=== PATIENT | male | born 1990 | race Caucasian/White ===

== ENCOUNTER 2022-03-03 22:37 | Emergency (ER) | payer OTHER, SELFPAY ==
[2022-03-03 22:50] VITALS: BP 155/56; PULSE 116; RESP 20; TEMP 37.1; O2SAT 99
--- NOTE | 2022-03-03 23:00 | ED.SKABFB ---
HPI - Skin/Abscess/Foreign Bdy General Chief complaint: Skin/Abscess/Foreign Body Stated complaint: abcess to inner thigh Time Seen by Provider: 03/03/22 22:56 History of Present Illness HPI narrative: 42-year male presents emergency room secondary to a tender swollen area to the left inguinal region. He states he has been there for a day or so. He states he try to get some drainage out of it at home but could not. Is gotten more more tender, red, and swollen. Not anything like this before. His last tetanus shot was a year and a half ago. Related Data Allergies Allergy/AdvReac Type Severity Reaction Status Date / Time No Known Allergies Allergy Verified 03/03/22 22:53 Review of Systems Review of Systems: CONSTITUTIONAL: Denies fever, chills, or sweats. EYES: Denies visual changes, redness, or discharge. ENT: Denies rhinorrhea, congestion, sore throat, or otalgia. CARDIOVASCULAR: Denies chest pain, palpitations, or edema. RESPIRATORY: Denies cough or dyspnea. GASTROINTESTINAL: Denies abdominal pain, nausea, vomiting, or diarrhea. GENITOURINARY: Denies dysuria or hematuria. SKIN: Not have a tender swollen area in the left inguinal region MUSCULOSKELETAL: Denies back pain, joint pain, or myalgia. NEUROLOGIC: Denies headache, numbness, or weakness. PSYCHIATRIC: Denies anxiety or depression. [facility] Past Medical History Medical History (Updated 03/03/22 @ 23:32 by Eric Suazo DO) Heart murmur Social History Social History (Updated 03/03/22 @ 23:01 by Eric Suazo DO) Living arrangements: with family Exam Narrative: APPEARANCE: Well appearing, no pain or distress, well-nourished. Head Normocephalic and atraumatic. EYES: PERRLA/EOMI, conjunctivae clear. NOSE: Normal with no drainage EARS:TMS clear with Savage, with good light reflex. THROAT: Pharynx clear, no exudate. NECK: Supple. No adenopathy, no masses. RESPIRATORY: Airway patent, respirations nonlabored. Clear to auscultation bilaterally, no rales, rhonchi, wheezing. CARDIOVASCULAR: Regular rate and rhythm without murmurs, rubs, or gallops. ABDOMINAL: Soft, nontender, nondistended, no hepatosplenomegaly Musculoskeletal: Moves all extremities. Strength/ROM intact, No edema, No calf tenderness. Noted to have approximately 2 to 3 cm in diameter fluctuant tender swollen area to the left inguinal region. NEURO: Alert. Cranial nerves II through XII intact. Normal gait. Good coordination. Nonfocal examination. SKIN:: Warm, dry. Normal Color PSYCHIATRIC: Normal affect/mood, normal interaction Course Vital Signs Vital signs: Vital Signs Temperature 98.7 F 03/03/22 22:50 Pulse Rate 116 H 03/03/22 22:50 Respiratory Rate 20 03/03/22 22:50 Blood Pressure 155/56 H 03/03/22 22:50 Pulse Oximetry 99 03/03/22 22:50 Oxygen Delivery Room Air 03/03/22 22:50 Temperature 98.7 F 03/03/22 22:50 Pulse Rate 116 H 03/03/22 22:50 Respiratory Rate 20 03/03/22 22:50 Blood Pressure 155/56 H 03/03/22 22:50 Pulse Oximetry 99 03/03/22 22:50 Oxygen Delivery Room Air 03/03/22 22:50 Procedures Abscess I/D lower extremity: Abcess I&D Additional Comments: Patient noted to have a abscess in the left inguinal area. The area was infiltrated with a total 10 cc of 1% lidocaine without epinephrine. Stab incision was made and able to obtain approximately 10 to 15 cc of purulent drainage. Using hemostats break up any loculations were noted to be present. Then was packed with quarter inch iodoform gauze. Patient tolerated procedure well. Discharge Plan Discharge Clinical Impression: Abscess of skin or subcutaneous tissue Patient Disposition: Home, Self-Care Condition: Improved Instructions: Antibiotic Form, Abscess (ED) Additional Instructions: Warm compresses to the area. If the packing is still in place in 2 days then you can remove it. Return if worse. Take medication as prescribed. Prescriptions: New cephalexi
[2022-03-03 23:55] VITALS: BP 121/72; PULSE 108; RESP 20; O2SAT 97
== END 2022-03-03 23:56 | disposition home or self-care (01) ==
PROVIDERS: Emergency Provider Emergency Medicine; PCP Family Medicine
DX: L02.214 Cutaneous abscess of groin (principal)
CPT/HCPCS: 10061; 99283

== ENCOUNTER 2022-11-26 21:52 | Emergency (ER) | payer OTHER, SELFPAY ==
--- NOTE | ~2022-11-26 | XR_ITS ---
EXAMINATION: XR G tube evaluation w imaging DATE: 11/26/2022 22:39 INDICATION: Gastrostomy tube placement. TECHNIQUE: A supine view of the abdomen was obtained. COMPARISON: None. FINDINGS: The lower abdomen is excluded. There are no dilated loops of bowel. The gastrostomy tube is in the stomach. There is contrast in the tube and in the stomach. IMPRESSION: 1. Gastrostomy tube in the stomach. Reviewed, dictated and finalized at location A.
[2022-11-26 21:52] VITALS: BP 121/73; PULSE 79; RESP 20; TEMP 36.5; O2SAT 100
[2022-11-26 22:00] VITALS: BP 121/73; O2SAT 100
[2022-11-26 22:16] VITALS: BP 119/71; PULSE 73; O2SAT 100
--- NOTE | 2022-11-26 22:47 | ED.GENADULT ---
HPI - General Adult General Chief complaint: Unspecified Stated complaint: BLEEDING AND DISCHARGE FROM G-TUBE Time Seen by Provider: 11/26/22 22:48 History of Present Illness HPI narrative: Patient 32-year-old gentleman who presents the emergency department with chief complaint of possible G-tube complication. The patient has history of a traumatic brain injury and is currently receiving G-tube feeds. The family noticed that when they were cleaning him today there was a little bit of blood around the site of the G-tube and noticed a little bit of leaking around the G-tube site. Upon arrival to the emergency department the patient has no complaints with it and there is currently no active bleeding the family was concerned as they wanted to make sure it was placed correctly. Related Data Allergies Allergy/AdvReac Type Severity Reaction Status Date / Time No Known Allergies Allergy Verified 11/26/22 22:05 Review of Systems Review of Systems: A 10 system review of systems was completed on the patient and is negative except for what is stated in the HPI. Nursing and ancillary documentation was reviewed. [facility] Past Medical History Medical History Atrial septal defect Heart murmur Surgical History Surgical History H/O wrist surgery History of appendectomy Family History Family History Father Sleep apnea Social History Social History Smoking status: Never smoker Tobacco type: cigarettes Second hand tobacco smoke exposure: No Alcohol intake: never Substance use: never Substance use type: does not use Living arrangements: with family Exam Narrative: GENERAL: Well-appearing, well-nourished, and in no acute distress. HEAD: Normocephalic, atraumatic. EYES: PERRLA and EOMI. ENT: Nares clear, no rhinorrhea or epistaxis. Mucous membranes moist. NECK: Supple. CHEST: Clear to auscultation. No respiratory distress. HEART: Regular rate and rhythm. No murmur heard. Normal peripheral pulses. ABDOMEN: Soft, nontender, nondistended, normal active bowel sounds. G-tube in place no erythema around the site no bleeding EXTREMITIES: Patient at baseline level of motion extremities held in a contracted position. No edema. SKIN: Warm, dry, no rash. NEURO: No focal deficits. Alert to baseline, PSYCH: Normal mood and affect. Course Vital Signs Vital signs: Vital Signs Temperature 97.7 F 11/26/22 21:52 Pulse Rate 79 11/26/22 21:52 Respiratory Rate 20 11/26/22 21:52 Blood Pressure 121/73 11/26/22 21:52 Pulse Oximetry 100 11/26/22 21:52 Oxygen Delivery Room Air 11/26/22 21:52 Temperature 97.7 F 11/26/22 21:52 Pulse Rate 73 11/26/22 22:16 Respiratory Rate 20 11/26/22 21:52 Blood Pressure 119/71 11/26/22 22:16 Pulse Oximetry 100 11/26/22 22:16 Oxygen Delivery Room Air 11/26/22 21:52 Medical Decision Making MDM Narrative Medical decision making narrative: Differential diagnosis includes malfunction of G-tube displacement of G-tube. G-tube contrast study was obtained which showed the tube is in place in the stomach. Vital Signs Vital Signs: Vital Signs Temperature 97.7 F 11/26/22 21:52 Pulse Rate 79 11/26/22 21:52 Respiratory Rate 20 11/26/22 21:52 Blood Pressure 121/73 11/26/22 21:52 Pulse Oximetry 100 11/26/22 21:52 Oxygen Delivery Room Air 11/26/22 21:52 Temperature 97.7 F 11/26/22 21:52 Pulse Rate 73 11/26/22 22:16 Respiratory Rate 20 11/26/22 21:52 Blood Pressure 119/71 11/26/22 22:16 Pulse Oximetry 100 11/26/22 22:16 Oxygen Delivery Room Air 11/26/22 21:52 Discharge Plan Discharge Clinical Impression: Encounter for medical screening examinatio
== END 2022-11-27 00:17 | disposition home or self-care (01) ==
PROVIDERS: Emergency Provider Emergency Medicine; PCP Family Medicine
DX: Z43.1 Encounter for attention to gastrostomy (principal); Z87.820 Personal history of traumatic brain injury
CPT/HCPCS: 49465; 99283

== ENCOUNTER 2023-03-27 16:49 | Inpatient (IN) | payer OTHER, BC, SELFPAY ==
[2023-03-27] VITALS (23 sets, daily range): BP systolic 76–116; BP diastolic 28–91; PULSE 121–187; RESP 24–47; TEMP 37–40.3; O2SAT 95–100
--- NOTE | ~2023-03-27 | XR_ITS ---
EXAMINATION: XR chest ET placement DATE: 03/27/2023 23:45 INDICATION: Intubation. TECHNIQUE: A single frontal view of the chest was obtained. COMPARISON: Chest CT 03/27/2023 FINDINGS: There is mild atelectasis at left lung base. No pleural effusion or pneumothorax. The heart size is normal. The endotracheal tube tip is 5.7 cm above the mehreen. The nasogastric tube tip is in the stomach. There is an old healed fracture of left clavicle. There are old healed left rib fractur es. IMPRESSION: 1. Mild atelectasis at left lung base. Reviewed, dictated and finalized at location A.
--- NOTE | ~2023-03-27 | CT_ITS ---
EXAMINATION: CT chest abdomen pelvis wo con DATE: 03/27/2023 21:38 INDICATION: fever . TECHNIQUE: Computed tomography (CT) of the chest, abdomen, and pelvis was performed with 100 mL Omnip aque-350 intravenous contrast. Automated exposure control and iterative reconstruction technique were employed. The dose-length product was 1772.76 mGy-cm. COMPARISON: None FINDINGS: Motion limited examination. CHEST: Thoracic aorta: No significant dilation or calcification. Lung parenchyma and airways: Minimal dependent left lung atelectasis/consolidation. Thoracic inlet, axillae and chest wall: No thyroid or soft tissue mass. No axillary lymphadenopathy. Mediastinum: Patulous, fluid-filled esophagus. Heart and pericardium: Normal heart size. No pericardial effusion. Coronary artery calcifications: Absent. Pleura: No effusion or mass. Thoracic bones: No acute osseous finding in the chest. ABDOMEN/PELVIS: Liver: Normal. Biliary/Gallbladder: Gallbladder is normal. No bile duct dilation. Pancreas: No mass or duct dilation. Spleen: Normal. Adrenals:No mass. Kidneys: No mass, stone, or hydronephrosis. GI tract: Dilated, fluid-filled stomach. G-tube in position. Multiple loops of dilated small bowel in the left upper abdomen. No definite transition point although this determination is difficult given the degree of motion. Mild dilation of the rectum by formed stool. Appendix not confidently visualize d. Mesentery/Peritoneum: No ascites, mass, or free air. Retroperitoneum: No mass . The IVC is flat. Pelvis: The urinary bladder is drained by a Adames catheter. Soft Tissues: Prominent bilateral inguinal lymph nodes. Soft tissue stranding in the left inguinal re gion. Left femoral central venous line, in good position. Abdominopelvic bones: No acute osseous finding in the abdomen/pelvis. IMPRESSION: Motion limited examination. Subsegmental dependent left lung atelectasis/consolidation, may represent aspiration depending on the clinical context. Dilated, fluid-filled stomach. The G-tube appears to be in good position. Dilated small bowel concerning for small bowel obstruction, noting that ileus could appear similarly. Flat IVC, as can be seen with hypovolemia/dehydration. Mild fecal impaction, without CT signs of stercoral colitis. Left femoral central venous line, in good position, with surrounding inflammatory change, may be seco ndary to recent placement or infection. Reviewed, dictated and finalized at location K. IMPRESSION: Motion limited examination. Subsegmental dependent left lung atelectasis/consolidation, may represent aspir ation depending on the clinical context. Dilated, fluid-filled stomach. The G-tube appears to be in good position. Dilated small bowel concerning for small bowel obstruction, noting that ileus c ould appear similarly. Flat IVC, as can be seen with hypovolemia/dehydration. Mild fecal impaction, without CT signs of stercoral colitis. Left femoral central venous line, in good position, with surrounding inflammato ry change, may be secondary to recent placement or infection.
--- NOTE | ~2023-03-27 | XR_ITS ---
EXAMINATION: XR chest 1V portable DATE: 03/28/2023 09:26 INDICATION: Intubation. TECHNIQUE: A single frontal view of the chest was obtained. COMPARISON: Chest single view 03/27/2023, chest CT 03/27/2023 FINDINGS: There are small pleural effusions. There are airspace opacities in the mid and lower lung z ones with a basilar predominance. No pneumothorax. The heart size is normal. The endotracheal tube ti p is 5.7 cm above the mehreen. The nasogastric tube tip is in the stomach. IMPRESSION: 1. Worsened airspace opacities in the mid and lower lung zones, consistent with atelectasis versus pn eumonia. 2. Small pleural effusions. Reviewed, dictated and finalized at location A. IMPRESSION: 1. Worsened airspace opacities in the mid and lower lung zones, consistent with atelectasis versus pneumonia. 2. Small pleural effusions.
--- NOTE | ~2023-03-27 | XR_ITS ---
EXAMINATION: XR_KUBGTUBINS_CR DATE: 03/27/2023 23:45 INDICATION: Orogastric tube placement. TECHNIQUE: A supine view of the abdomen was obtained. COMPARISON: CT abdomen and pelvis 03/27/2023 FINDINGS: The lower abdomen is excluded. There is a gastrostomy tube in expected position. The orogas tric tube tip is in the stomach. IMPRESSION: 1. Orogastric tube tip in the stomach. Reviewed, dictated and finalized at location A.
--- NOTE | ~2023-03-27 | XR_ITS ---
Portable chest x-ray Comparison: 03/28/2023 Clinical History: Respiratory failure Findings: Endotracheal tube and NG tube are in satisfactory positions. There is mild pulmonary edema with possible minimal pleural effusions. Cardiomediastinal silhouette is stable. Bones and soft tis sues are unremarkable. Impression: Mild pulmonary edema with possible minimal layering pleural effusions. Support tubes, as above. Reviewed, dictated and finalized at [facility]. Impression: Mild pulmonary edema with possible minimal layering pleural effusions. Support tubes, as above.
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
--- NOTE | 2023-03-27 17:08 | ECG_ITS ---
Measurements Intervals [place] Rate: 185 P: SD: 0 QRS: 63 QRSD: 81 T: 38 QT: 242 QTc: 425 Interpretive Statements SINUS OR ECTOPIC ATRIAL TACHYCARDIA BORDERLINE R WAVE PROGRESSION, ANTERIOR LEADS NONSPECIFIC ST & T-WAVE ABNORMALITY- LAT/HIGH LAT LEADS BASELINE WANDER- I, II, III, AVR, AVL, AVF ABNORMAL ECG NO PREVIOUS ECG AVAILABLE FOR COMPARISON Electronically Signed On 03-28-2023 8:09:38 CDT by Milton Posey D.O.
[2023-03-27] MEDS: SODIUM CHLORIDE 0.9% IV 1,000 ML 999 ML IV CONT ×2 (17:25→17:29)
[2023-03-27 17:28] LABS: Glucose Point of Care 137 mg/dl (65-105)
[2023-03-27] MEDS: MIDAZOLAM HCL (*CRX) 2 MG/2 ML VIAL 4 MG (17:29)
[2023-03-27] MEDS: ADENOSINE IV SOLN 6 MG/2 ML VIAL IV PUSH (17:32)
[2023-03-27] MEDS: MIDAZOLAM HCL (*CRX) 2 MG/2 ML VIAL 4 MG IV PUSH (17:34)
[2023-03-27] MEDS: ADENOSINE IV SOLN 6 MG/2 ML VIAL 12 MG (17:41)
[2023-03-27] MEDS: METOPROLOL TARTRATE INJ 5 MG/5 ML VIAL (17:42)
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
[2023-03-27] MEDS: METOPROLOL TARTRATE INJ 5 MG/5 ML VIAL IV PUSH (17:58)
[2023-03-27] MEDS: MAGNESIUM SULF 2 GM/WATER 50ML 2 GM/50 ML BAG IVPB (18:06)
[2023-03-27] MEDS: ADENOSINE IV SOLN 6 MG/2 ML VIAL 12 MG IV PUSH (18:14)
[2023-03-27 18:28] LABS: Basophils Absolute Auto 0.1 K/mm3 (0.0-0.1); Basophils Percent Auto 0.4 % (0.2-1.2); Eosinophils Absolute Auto 0.1 K/mm3 (0-0.3); Eosinophils Percent Auto 0.6 % (0-4.4); Hematocrit 55.5 % (42.0-52.0); Immature Granulocyte Percent A 20.3 % (0-0.5); Lymphocytes Absolute Auto 2.22 K/mm3 (0.9-3.2); Mean Corpuscular HGB Conc 32.4 g/dl (32-36); Mean Corpuscular Hemoglobin 30.5 pg (26-34); Mean Corpuscular Volume 94.1 fl (80-100); Mean Platelet Volume 11.3 fl (7.4-10.4); Monocytes Absolute Auto 1.4 K/mm3 (0.1-0.6); Neutrophils Absolute Auto 6.1 K/mm3 (1.3-6.7); Neutrophils Percent Auto 49.7 % (45.5-73.1); Nucleated Red Blood Cells Perc 0.2 % (0.0-0.2); Platelet Count Result 231 k/mm3 (150-375); Red Cell Distribution Width 12.7 % (11.5-14.5); White Blood Count 12.3 K/mm3 (4.5-10.0)
[2023-03-27 18:45] LABS: Alanine Aminotransferase 136 U/L (6-50); Albumin Level 5.7 g/dL (3.5-5.1); Alkaline Phosphatase 161 U/L (38-126); Anion Gap 21 mmol/L (8-16); Aspartate Amino Transferase 161 U/L (17-59); Blood Urea Nitrogen 25 mg/dL (9-20); CRP < 0.5 mg/dL (<1.0); Carbon Dioxide 16 mmol/L (22-30); Chloride 109 mmol/L (98-107); Estimated CRCL calculation 42 ml/min; Estimated Glomerular Filt Rate 32; Glucose 111 mg/dL (65-110); Potassium 3.9 mmol/L (3.4-5.0); Sodium 146 mmol/L (137-145)
[2023-03-27 18:47] LABS: INR 1.2; Partial Thromboplastin Time 24.2 SECONDS (22.3-36.8); Prothrombin Time 15.8 Seconds (11.1-14.7)
[2023-03-27 18:53] LABS: Lactic Acid Reflex 4.6 mmol/L (0.7-2.0)
[2023-03-27 18:59] LABS: Erythrocyte Sedimentation Rate 1 mm/hr (0-20)
[2023-03-27 19:10] LABS: Atypical Lymphocytes Present; Burr Cells 1+ (NORMAL); Large Platelets Present; Platelet Estimate Adequate (Adequate); Smudge Cells PRESENT
[2023-03-27 19:11] LABS: Schistocytes None Seen (NORMAL)
[2023-03-27 19:22] LABS: Procalcitonin 0.2 ng/mL
[2023-03-27] MEDS: SODIUM CHLORIDE 0.9% IV 1,000 ML 250 ML IV CONT (19:26)
[2023-03-27 19:39] LABS: Influenza A QL RT-PCR Negative (Negative); Influenza B QL RT-PCR Negative (Negative); RSV RNA, RT-PCR Negative (Negative); SARS-CoV-2 RNA PCR Negative (Negative)
[2023-03-27] MEDS: NOREPINEPHRINE 8 MG/D5W 250 ML 8 MG/250 ML BAG 9.38 MG IV CONT (19:44)
--- NOTE | 2023-03-27 19:50 | PC.NURSE ---
Patient became hypotensive. Notified Dr. Suazo EDP who advised to not administer morphine.
[2023-03-27 20:41] LABS: Creatine Kinase 167 U/L (55-170)
[2023-03-27] MEDS: PIPERACILLN/TAZ 3.375GM/NS50ML 3.375 GM/50 ML BAG IVPB (21:13)
[2023-03-27] MEDS: ACETAMINOPHEN ELIXIR 325 MG/10.15 ML UDC 1000 MG PO (21:13)
[2023-03-27 21:22] LABS: Reflex Lactic Acid Yes or No Add Lactic
[2023-03-27] MEDS: VANCOMYCIN 1,250 MG/NS 250 ML 1,250 MG/250 ML BAG 166.67 MG IVPB (21:50)
[2023-03-27] MEDS: IBUPROFEN SUSPENSION 200 MG/10 ML UDC 800 MG FEED TUBE (22:20)
[2023-03-27] MEDS: LACTATED RINGERS 1,000 ML 999 ML IV CONT ×2 (22:31→23:47)
[2023-03-27 22:33] LABS: Appearance Urine Turbid (Clear); Bacteria Urine None Seen /hpf; Bilirubin Urine Negative (Negative); Blood Urine 1+ (Negative); Color Urine Yellow (Yellow); Glucose Urine UA Negative (Negative); Hyaline Casts Urine Present /lpf; Ketones Urine Negative (Negative); Leukocyte Esterase Ur Negative LEU/UL (Negative); Nitrate Urine Negative (Negative); Protein Urine 2+ mg/dL (Negative); Specific Grav Ur 1.009 (1.001-1.035); Spermatozoa Urine Present; Squamous Epithelial Cell Urine Few /hpf (Few); Transitional Epi Cells Urine Present /hpf (None Seen); Urobilinogen Urine 0.2 mg/dL (<2.0); pH Urine 6.5 (5.0-9.0)
[2023-03-27 22:34] LABS: Add Urine Microscopic? YES
--- NOTE | 2023-03-27 22:40 | PCRCNOTE ---
unable to obtain ABG from patient due to low BP, unable to obtain a pulse at 2100. Dr. Causey and Gabriele agreed on VBG to be obtained instead.
[2023-03-27 23:07] LABS: Fractional Inspired Oxygen 100 %; HCO3 VBG 14.3 mEq/l (24.0-30.0); PCO2 VBG 33.5 mmHg (42.0-48.0); PO2 VBG 43.1 mmHg (35.0-45.0)
[2023-03-27 23:10] LABS: Anion Gap 20 mmol/L (8-16); Blood Urea Nitrogen 32 mg/dL (9-20); Calcium 9.7 mg/dL (8.4-10.2); Carbon Dioxide 14 mmol/L (22-30); Chloride 114 mmol/L (98-107); Estimated CRCL calculation 33 ml/min; Estimated Glomerular Filt Rate 23; Glucose 54 mg/dL (65-110); Potassium 3.5 mmol/L (3.4-5.0); Sodium 148 mmol/L (137-145)
[2023-03-27 23:11] LABS: Lactic Acid Reflex 4.7 mmol/L (0.7-2.0)
[2023-03-27 23:11] LABS: Device NON-REBREATHER MASK; pH VBG 7.247 (7.300-7.400)
[2023-03-27] MEDS: DEXTROSE 50% 25 GM/50 ML SYRINGE IV PUSH (23:17)
--- NOTE | 2023-03-27 23:25 | PC.NURSE ---
TRANSFER ATTEMPTS 1923:[facility], TRYING TO FIND ICU BED AT THIS TIME. PT PUT ON WAITLIST 2230: [facility]- [facility]- DIVERSION 224: [facility]- [facility]CL[facility]- [facility] 2250: [facility]- [facility]CLINED- DIVERSION 2300: [facility] TRANSF[facility]- WAITING FOR PROVIDER TO CALL BACK 2323: [facility]- [place]CL[place]ED- DIVERSION
[2023-03-27] MEDS: PROPOFOL IV EMULSION 100 ML 2.76 MG IV CONT (23:37)
[2023-03-27] MEDS: VANCOMYCIN 1,000 MG/NS 250 ML 1,000 MG/250 ML BAG 250 MG IVPB (23:40)
--- NOTE | 2023-03-27 23:54 | PC.NURSE ---
EDP Dr. Suazo advised he would be intubating the patient. At 2321 20mg Etomidate was given IVP in the central line and then flushed with a 10mL NS syringe. At 232 100mg Succinylcholine was given IVP in the central line and then flushed with a 10mL NS syringe. A 7.5 ET tube was used and placed at 23mm at the teeth. An OG tube was placed and set at 65 at the lips.
[2023-03-28] VITALS (111 sets, daily range): BP systolic 60–143; BP diastolic 22–99; PULSE 90–139; RESP 18–39; TEMP 37–38.9; O2SAT 95–100; BMI 30.7
[2023-03-28] MEDS: levETIRAcetam 1000MG/NACL100ML 1,000 MG/100 ML BAG 400 MG IVPB (00:02)
[2023-03-28 00:09] LABS: Triglycerides 68 mg/dL (<150)
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
[2023-03-28 00:25] LABS: Glucose Point of Care 80 mg/dl (65-105)
[2023-03-28] MEDS: SODIUM BICARBONATE 8.4% 50 MEQ/50 ML SYRINGE 100 MEQ IV PUSH (00:34)
[2023-03-28] MEDS: SODIUM BICARBONATE 8.4% 150 MEQ in DEXTROSE 5% 1,000 ML 950 ML IV CONT (01:13)
[2023-03-28] MEDS: SODIUM CHLORIDE 0.9% IV 1,000 ML 999 ML IV CONT ×2 (02:00→03:21)
[2023-03-28] MEDS: VASOPRESSIN INJ 100 UNITS in DEXTROSE 5% 95 ML IV CONT (02:00)
[2023-03-28 02:05] LABS: Toxigenic C. Diff NEGATIVE (NEGATIVE)
--- NOTE | 2023-03-28 02:54 | ADMIMU ---
This patient, Antonio Deluna, was admitted to IMU status, and placed in Intensive Care Unit-7. Patient/family oriented to hospital policies and general routines including ID bracelet, bed and alarms, visiting hours, pain management, procedures, bathroom and other care routines, personal items, smoking policy, room service/diet, and visiting hours. Valuables list has been completed. Information on how to activate the Rapid Response Team has been discussed. Patient/Family are encouraged to report perceived risks to care and to ask questions if they do not understand what they are told or what they should do.
[2023-03-28] MEDS: EPINEPHrine INJ 1 MG in DEXTROSE 5% IN WATER 250 ML 15.06 MG IV CONT (03:00)
[2023-03-28] MEDS: SODIUM BICARBONATE 8.4% 50 MEQ/50 ML SYRINGE 100 MEQ (03:00)
[2023-03-28] MEDS: metroNIDAZOLE 500 MG/ISO 100ML 500 MG/100 ML BAG 100 MG IVPB ×3 (03:05→19:38)
[2023-03-28] MEDS: FENTANYL 2,500MCG/NS250ML(*CRX 2,500 MCG/250 ML BAG IV CONT (03:06)
[2023-03-28] MEDS: CEFEPIME 2 GM/NS 50 ML 2 GM/50 ML BAG IVPB ×2 (03:14→15:15)
[2023-03-28] MEDS: NOREPINEPHRINE 8 MG/D5W 250 ML 8 MG/250 ML BAG 75 MG IV CONT ×2 (03:20→05:02)
[2023-03-28] MEDS: SODIUM CHLORIDE 0.9% IV 1,000 ML 999 ML (03:28)
[2023-03-28 03:40] LABS: Alveolar/Arterial O2 Gradient 385.1 mmHg; Base Excess ABG -7.1 mEq/l (+/-2.0); Carboxyhemoglobin 0.3 % THb (0-2.0); Fractional Inspired Oxygen 100 %; HCO3 ABG 16.1 mEq/l (22.0-26.0); Methemoglobin ABG 0.8 %THb (0-1.5); Oxygen Content ABG 20.6 %vol (16.0-22.0); Oxygen Saturation ABG 99.7 % (95.0-100.0); Oxyhemoglobin 97.6 % THb (90.0-100.0); PCO2 ABG 27.1 mmHg (35.0-45.0); PO2 ABG 300.8 mmHg (80.0-100.0); PO2 FiO2 Ratio Arterial Blood 3.01 %; Reduced Hemoglobin 1.3 %THb (0-5.0); Total Hemoglobin 14.5 g/dL (12.0-18.0); pH ABG 7.393 (7.350-7.450)
[2023-03-28 03:41] LABS: Device VENTILATOR; Site Drawn ARTLINE
[2023-03-28 03:42] LABS: Arterial Blood Gas PEEP 5 cmH2O; Arterial Blood Gas Vent Mode CMV; Arterial Blood Gas Ventilator rate 18 /MIN
[2023-03-28 03:43] LABS: Arterial Blood Gas Tidal Volume 450 ml
[2023-03-28 03:50] LABS: Basophils Absolute Auto 0.1 K/mm3 (0.0-0.1); Basophils Percent Auto 0.6 % (0.2-1.2); Eosinophils Percent Auto 0.1 % (0-4.4); Hematocrit 40.3 % (42.0-52.0); Hemoglobin 13.4 g/dL (14.0-18.0); Immature Granulocyte Absolute 0.56 K/mm3 (0.00-0.031); Immature Granulocyte Percent A 3.7 % (0-0.5); Immature Platelet Fraction Pct 5.1 % (0.9-11.2); Lymphocytes Percent Auto 15.7 % (18.3-44.2); Mean Corpuscular HGB Conc 33.3 g/dl (32-36); Mean Corpuscular Hemoglobin 30.8 pg (26-34); Mean Corpuscular Volume 92.6 fl (80-100); Mean Platelet Volume 11.2 fl (7.4-10.4); Monocytes Absolute Auto 0.6 K/mm3 (0.1-0.6); Monocytes Percent Auto 3.6 % (2.6-8.5); Neutrophils Absolute Auto 11.7 K/mm3 (1.3-6.7); Neutrophils Percent Auto 76.3 % (45.5-73.1); Nucleated Red Blood Cells Absolute Auto 0.5 K/mm3 (0.0-0.012); Nucleated Red Blood Cells Perc 3.4 % (0.0-0.2); Platelet Count Result 58 k/mm3 (150-375); Red Blood Count 4.35 M/mm3 (4.6-6.20); Red Cell Distribution Width 13.3 % (11.5-14.5); White Blood Count 15.3 K/mm3 (4.5-10.0)
[2023-03-28 04:03] LABS: Albumin Level 2.8 g/dL (3.5-5.1); Alkaline Phosphatase 116 U/L (38-126); Anion Gap 16 mmol/L (8-16); Aspartate Amino Transferase 619 U/L (17-59); Bilirubin,Total 1.8 mg/dL (0.2-1.3); Blood Urea Nitrogen 36 mg/dL (9-20); Calcium 7.8 mg/dL (8.4-10.2); Carbon Dioxide 16 mmol/L (22-30); Chloride 115 mmol/L (98-107); Estimated CRCL calculation 31 ml/min; Estimated Glomerular Filt Rate 22; Glucose 49 mg/dL (65-110); Sodium 147 mmol/L (137-145)
[2023-03-28] MEDS: DEXTROSE 50% 25 GM/50 ML SYRINGE IV PUSH (04:05)
[2023-03-28] MEDS: CELLULOSE OXIDIZED 2 x 14 INCH 2 PKT XX (04:06)
[2023-03-28] MEDS: HYDROCORTISONE SODIUM SUCCINATE 100 MG/2 ML VIAL IV PUSH ×4 (04:07→22:15)
[2023-03-28 04:10] LABS: Alanine Aminotransferase 514 U/L (6-50); INR 14.1; Partial Thromboplastin Time 162.1 SECONDS (22.3-36.8)
[2023-03-28 04:11] LABS: Prothrombin Time 119.8 Seconds (11.1-14.7)
--- NOTE | 2023-03-28 04:23 | WPDPROCEDUR ---
Procedures Arterial Line Arterial Line Date: 03/28/23 Arterial Line Time: 03:00 Discussed with the patient/family/POA, the placement of an arterial catheter, including its clinical necessity/indication and associated potential risks, benefits and alternatives.: Yes Patient/family/POA and/or understands and acknowledges the need to proceed with the arterial catheter insertion as an important element of the patient's clinical management.: Yes Time Out Performed: Yes Patient Position: supine Customer Advisor Specialist Prep: sterile gown, sterile gloves, mask and hat Site: right Site Prep: chlorhexidine and sterile drape Technique used: ultrasound-guided Size (Gauge): 20 Length: 12 cm Closure/Dressing: suture, transparent dressing, hemostatic product and securement product Additional comments: Patient was a difficult access. Initially 1st 2 temps I did obtain arterial appearing blood but it was nonpulsatile. At the time patient's blood pressures were low in the 60s. I did attempt to feed the guidewire without success. Multiple other attempts were made even with ultrasound the needle repetitively would slide off of the artery. The femoral artery was also deep and difficult to access. I did try a right radial art line 1 attempt without success. Subsequently I went to the right brachial IA got arterial blood on 2nd attempt the line was sutured into place. Within 30 minutes of line placement the line clotted off. Labs that were obtained from that art line demonstrated that the patient was in DIC. DIC treatment was initiated.
[2023-03-28] MEDS: LACTATED RINGERS 1,000 ML 999 ML IV CONT (04:30)
[2023-03-28 04:37] LABS: Glucose Point of Care 106 mg/dl (65-105)
[2023-03-28] MEDS: KCL 40 MEQ/WATER 100 ML 100 ML 25 ML IVPB (04:38)
[2023-03-28 04:52] LABS: D Dimer > 20.00 ug/mL (<0.48); Fibrinogen < 60 mg/dl (215-510)
[2023-03-28] MEDS: SODIUM CHLORIDE 0.9% IV 250 ML 30 ML IV CONT (05:04)
[2023-03-28 05:12] LABS: Band Neutrophils Percent 9 % (0-6); Lymphocytes Absolute Manual 1.98 K/mm3 (1.1-4.5); Monocytes Absolute Manual 0.15 K/mm3 (0.1-0.90); Monocytes Percent Manual 1 % (3-9); Neutrophils Absolute Manual 13.15 K/mm3 (1.3-6.7); Neutrophils Percent Manual 77 % (46-73); Nucleated Red Blood Cells 4 %; Total Cells Counted 100
[2023-03-28 05:13] LABS: Platelet Estimate Decreased (Adequate); Schistocytes None Seen (NORMAL)
[2023-03-28] MEDS: EPINEPHrine INJ 1 MG in DEXTROSE 5% IN WATER 250 ML 120.48 MG IV CONT (05:35)
[2023-03-28] MEDS: SODIUM BICARBONATE 8.4% 150 MEQ in DEXTROSE 5% 1,000 ML 950 ML 250 MEQ IV CONT (06:45)
[2023-03-28 07:18] LABS: Glucose Point of Care 72 mg/dl (65-105)
[2023-03-28] MEDS: EPINEPHrine INJ 1 MG in DEXTROSE 5% IN WATER 250 ML 225.9 MG IV CONT (07:23)
[2023-03-28] MEDS: PHYTONADIONE ADULT INJ 10 MG in DEXTROSE 5% IN WATER 50 ML 68 MG IVPB (08:14)
[2023-03-28] MEDS: EPINEPHrine INJ 1 MG in DEXTROSE 5% IN WATER 250 ML 301.2 MG IV CONT ×2 (08:28→09:29)
--- NOTE | 2023-03-28 09:12 | WPDCNINT ---
Assessment and Plan Assessment and plan (1) Septic shock: Code(s): A41.9 - Sepsis, unspecified organism; R65.21 - Severe sepsis with septic shock Status: Acute Assessment and Plan: Patient presented with fevers, diaphoresis, tachycardia, was start to be in a neural storm/paroxysmal sympathetic hyperactivity -patient was given adenoma seen, metoprolol, Versed -while in the ER patient dropped his blood pressures requiring a central line and Levophed and phenylephrine -patient was given adequate amount of IV fluid, bicarb pushes -currently on Levophed, vasopressin, phenylephrine, epinephrine infusion, will maintain MAP > 65-70 mmHg for adequate end organ perfusion -patient in acute kidney injury and shock liver -03/27: blood cultures obtained and pending -03/27: urine cultures obtained and pending -continue cefepime, Flagyl and vancomycin (03/27) -patient placed on stress dose steroids -03/28: Check MRSA screen (2) Acute respiratory failure: Code(s): J96.00 - Acute respiratory failure, unspecified whether with hypoxia or hypercapnia Status: Acute Assessment and Plan: Acute respiratory failure likely related to septic shock, airway protection and pneumonia/pneumonitis secondary to aspiration -03/27: Intubated in the ER -currently on CMV mode of ventilation, peep of 5 and 40% FiO2 with adequate O2 sats -chest x-ray this morning: Worsened airspace opacities in the mid and lower lung zones, consistent with atelectasis versus pneumonia. Small pleural effusions. ETT in place, nasogastric tube in stomach -will start bronchodilators -thick ETT secretions, will start Pulmozyme -patient not on any sedation (3) Aspiration pneumonia: Qualifiers: Aspiration pneumonia type: due to regurgitated food Laterality: bilateral Lung location: unspecified part of lung Qualified Code(s): J69.0 - Pneumonitis due to inhalation of food and vomit Code(s): J69.0 - Pneumonitis due to inhalation of food and vomit Status: Acute Assessment and Plan: Continue antibiotics as above currently on mechanical ventilation (4) DIC (disseminated intravascular coagulation): Code(s): D65 - Disseminated intravascular coagulation [defibrination syndrome] Status: Acute Assessment and Plan: Patient managed to DIC most likely related to septic shock -INR 14.1, fibrinogen < 60, D-dimer > 20.0, PTT 162.1 -platelet count of 58 -patient received 2 units of FFP is, 2 units of cryoprecipitate and 2 units of platelets Will monitor CBC and DIC panel (5) Acute kidney injury: Code(s): N17.9 - Acute kidney failure, unspecified Status: Acute Assessment and Plan: Patient presented with acute kidney injury with a creatinine of 2140 on admission -has received adequate IV fluids -currently on bicarb infusion -CT scan of the abdomen and pelvis did not show any hydronephrosis, stone or masses -nephrology has been consulted -will obtain CK level, urine eosinophil and urine lytes -patient on 4 pressors, will maintain MAP of 65 mmHg at all times for adequate renal perfusion -monitor urine output, electrolytes and renal function (6) Elevated LFTs: Code(s): R79.89 - Other specified abnormal findings of blood chemistry Status: Acute Assessment and Plan: Most likely related to septic shock, shock liver -will continue to monitor -will obtain hepatitis panel -CT abdomen and pelvis showed normal liver, normal gallbladder with no bile duct dilatation (7) Ileus: Code(s): K56.7 - Ileus, unspecified Status: Acute Assessment and Plan: Ileus versus small-bowel obstruction on CT scan of the abdomen and pelvis -OG/NG tube to suction -will have surgery evaluate the patient -this is most likely related to septic shock, hypoperfusion (8) Traumatic brain injury: Qualifiers: Encounter type: sequela Loss of consciousness presence/duration: unknown LOC status
[2023-03-28] MEDS: CELLULOSE OXIDIZED 2 x 3 INCH 1 PKT XX (09:31)
[2023-03-28] MEDS: SODIUM CHLORIDE 0.9% IV 1,000 ML 100 ML (09:37)
--- NOTE | 2023-03-28 10:07 | WPDPROCEDUR ---
Procedures Arterial Line Arterial Line Date: 03/28/23 Arterial Line Time: 08:25 Discussed with the patient/family/POA, the placement of an arterial catheter, including its clinical necessity/indication and associated potential risks, benefits and alternatives.: Yes Patient/family/POA and/or understands and acknowledges the need to proceed with the arterial catheter insertion as an important element of the patient's clinical management.: Yes Time Out Performed: Yes Patient Position: supine Site: left and femoral Site Prep: chlorhexidine and sterile drape Technique used: ultrasound-guided Size (Gauge): 20 Length: 12 cm Closure/Dressing: suture, transparent dressing, hemostatic product, antimicrobial product and securement product Patient tolerated procedure: well Complications: none
[2023-03-28] MEDS: EPINEPHrine INJ 4 MG in DEXTROSE 5% IN WATER 250 ML 76.2 MG IV CONT ×3 (10:17→16:54)
[2023-03-28] MEDS: IPRATROPIUM BR 0.02% INH SOLN 0.5 MG/2.5 ML VIAL INHALATION ×3 (10:48→20:19)
[2023-03-28] MEDS: LEVALBUTEROL NEB 1.25 MG/3 ML 0.63 MG INHALATION ×3 (10:48→20:19)
[2023-03-28] MEDS: DORNASE ALFA INH SOLN 1 MG/ML 2.5 ML AMP 2.5 MG INHALATION ×2 (10:51→20:19)
[2023-03-28] MEDS: SODIUM CHLORIDE 0.9% IV 500 ML 30 ML (10:55)
[2023-03-28] MEDS: MINERAL OIL/WHITE PETROLATUM OINTMENT 1 APPLIC EACH EYE ×2 (10:55→22:15)
[2023-03-28 11:22] LABS: Glucose Point of Care 77 mg/dl (65-105)
[2023-03-28 11:34] LABS: Hematocrit 34.9 % (42.0-52.0); Hemoglobin 11.3 g/dL (14.0-18.0); Immature Platelet Fraction Pct 4.2 % (0.9-11.2); Mean Corpuscular HGB Conc 32.4 g/dl (32-36); Mean Corpuscular Hemoglobin 30.9 pg (26-34); Mean Corpuscular Volume 95.4 fl (80-100); Mean Platelet Volume 10.4 fl (7.4-10.4); Platelet Count Result 72 k/mm3 (150-375); Red Blood Count 3.66 M/mm3 (4.6-6.20); Red Cell Distribution Width 13.8 % (11.5-14.5); White Blood Count 14.3 K/mm3 (4.5-10.0)
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
[2023-03-28 11:49] LABS: Magnesium 1.9 mg/dL (1.6-2.3)
[2023-03-28 11:56] LABS: Lactic Acid Reflex 9.9 mmol/L (0.7-2.0)
[2023-03-28 12:08] LABS: Albumin Level 3.4 g/dL (3.5-5.1); Alkaline Phosphatase 100 U/L (38-126); Anion Gap 18 mmol/L (8-16); Bilirubin,Total 2.1 mg/dL (0.2-1.3); Blood Urea Nitrogen 35 mg/dL (9-20); Calcium 7.9 mg/dL (8.4-10.2); Carbon Dioxide 21 mmol/L (22-30); Chloride 100 mmol/L (98-107); Creatine Kinase 2408 U/L (55-170); Estimated CRCL calculation 30 ml/min; Estimated Glomerular Filt Rate 19; Glucose 89 mg/dL (65-110); Sodium 139 mmol/L (137-145)
[2023-03-28 12:09] LABS: Alanine Aminotransferase 1693 U/L (6-50); Potassium 2.8 mmol/L (3.4-5.0)
[2023-03-28 12:11] LABS: INR 2.7; Prothrombin Time 31.2 Seconds (11.1-14.7)
[2023-03-28 12:12] LABS: Partial Thromboplastin Time 52.8 SECONDS (22.3-36.8)
[2023-03-28 12:18] LABS: Fibrinogen 91 mg/dl (215-510)
[2023-03-28] MEDS: PANTOPRAZOLE SODIUM IV 40 MG VIAL IV PUSH ×2 (12:21→22:15)
[2023-03-28] MEDS: MIDAZOLAM HCL (*CRX) 2 MG/2 ML VIAL ×2 (12:21→14:09)
[2023-03-28] MEDS: NOREPINEPHRINE BITARTRATE 16 MG in DEXTROSE 5% IN WATER 250 ML 39.9 MG IV CONT ×2 (12:35→19:20)
[2023-03-28] MEDS: ALBUMIN HUMAN 25% 25 GM/100 ML 100 ML IVPB ×3 (13:01→23:57)
[2023-03-28] MEDS: KCL 20 MEQ/SW 100 ML 100 ML 50 MEQ IVPB (13:10)
[2023-03-28 13:14] LABS: Anisocytosis 1+ (NORMAL); Band Neutrophils Percent 26 % (0-6); Burr Cells 1+ (NORMAL); Hypochromasia 1+ (NORMAL); Lymphocytes Absolute Manual 0.85 K/mm3 (1.1-4.5); Metamyelocytes Percent 3 %; Monocytes Absolute Manual 0.14 K/mm3 (0.1-0.90); Monocytes Percent Manual 1 % (3-9); Neutrophils Absolute Manual 12.87 K/mm3 (1.3-6.7); Neutrophils Percent Manual 64 % (46-73); Nucleated Red Blood Cells 4 %; Platelet Estimate Decreased (Adequate); Schistocytes None Seen (NORMAL); Total Cells Counted 100
[2023-03-28 13:21] LABS: D Dimer > 20.00 ug/mL (<0.48)
[2023-03-28 13:40] LABS: Alveolar/Arterial O2 Gradient 178.6 mmHg; Base Excess ABG -8.3 mEq/l (+/-2.0); Fractional Inspired Oxygen 40 %; HCO3 ABG 15.3 mEq/l (22.0-26.0); Oxygen Content ABG 16.1 %vol (16.0-22.0); Oxygen Saturation ABG 95.4 % (95.0-100.0); Oxyhemoglobin 94.3 % THb (90.0-100.0); PCO2 ABG 26.3 mmHg (35.0-45.0); PO2 ABG 76.4 mmHg (80.0-100.0); PO2 FiO2 Ratio Arterial Blood 1.91 %; Total Hemoglobin 12.1 g/dL (12.0-18.0); pH ABG 7.382 (7.350-7.450)
[2023-03-28 13:41] LABS: Device VENTILATOR; Site Drawn ARTLINE
[2023-03-28 13:42] LABS: Arterial Blood Gas PEEP 5 cmH2O; Arterial Blood Gas Tidal Volume 420 ml; Arterial Blood Gas Vent Mode CMV; Arterial Blood Gas Ventilator rate 22 /MIN
[2023-03-28] MEDS: CENTRAL LINE FLUSH 10 ML IV PUSH ×3 (14:09→22:16)
[2023-03-28 14:25] LABS: Aspartate Amino Transferase 1576 U/L (17-59)
[2023-03-28 14:28] LABS: Reflex Lactic Acid Yes or No Add Lactic
[2023-03-28] MEDS: MIDAZOLAM HCL (*CRX) 2 MG/2 ML VIAL 1 MG IV PUSH (15:37)
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
[2023-03-28] MEDS: SODIUM BICARBONATE 8.4% 150 MEQ in DEXTROSE 5% 1,000 ML 950 ML 100 MEQ IV CONT (16:57)
[2023-03-28] MEDS: MIDAZOLAM 100MG/NS 100ML(*CRX) 100 MG/100 ML BAG IV CONT (17:47)
[2023-03-28 20:04] LABS: Alveolar/Arterial O2 Gradient 187.6 mmHg; Base Excess ABG -8.6 mEq/l (+/-2.0); Fractional Inspired Oxygen 40 %; HCO3 ABG 15.8 mEq/l (22.0-26.0); Oxygen Content ABG 15.2 %vol (16.0-22.0); Oxygen Saturation ABG 91.4 % (95.0-100.0); Oxyhemoglobin 89.9 % THb (90.0-100.0); PCO2 ABG 29.8 mmHg (35.0-45.0); PO2 ABG 63.3 mmHg (80.0-100.0); PO2 FiO2 Ratio Arterial Blood 1.58 %; pH ABG 7.343 (7.350-7.450)
[2023-03-28 20:05] LABS: Device VENTILATOR; Modified Allen's Test Pass; Site Drawn ARTLINE
[2023-03-28 20:06] LABS: Arterial Blood Gas PEEP 5 cmH2O; Arterial Blood Gas Tidal Volume 420 ml; Arterial Blood Gas Vent Mode CMV; Arterial Blood Gas Ventilator rate 22 /MIN
[2023-03-28 20:16] LABS: Hematocrit 32.5 % (42.0-52.0); Hemoglobin 10.8 g/dL (14.0-18.0); Immature Platelet Fraction Pct 6.8 % (0.9-11.2); Mean Corpuscular HGB Conc 33.2 g/dl (32-36); Mean Corpuscular Hemoglobin 30.6 pg (26-34); Mean Corpuscular Volume 92.1 fl (80-100); Mean Platelet Volume 10.8 fl (7.4-10.4); Platelet Count Result 50 k/mm3 (150-375); Red Blood Count 3.53 M/mm3 (4.6-6.20); Red Cell Distribution Width 13.6 % (11.5-14.5); White Blood Count 19.4 K/mm3 (4.5-10.0)
[2023-03-28] MEDS: EPINEPHrine INJ 4 MG in DEXTROSE 5% IN WATER 250 ML 17 MG IV CONT (20:29)
[2023-03-28 20:30] LABS: Partial Thromboplastin Time 64.5 SECONDS (22.3-36.8); Prothrombin Time 54.3 Seconds (11.1-14.7)
[2023-03-28 20:36] LABS: Fibrinogen 65 mg/dl (215-510)
[2023-03-28 20:38] LABS: Albumin Level 3.7 g/dL (3.5-5.1); Alkaline Phosphatase 91 U/L (38-126); Anion Gap 21 mmol/L (8-16); Bilirubin,Total 3.1 mg/dL (0.2-1.3); Blood Urea Nitrogen 37 mg/dL (9-20); Calcium 7.5 mg/dL (8.4-10.2); Carbon Dioxide 16 mmol/L (22-30); Chloride 95 mmol/L (98-107); Estimated CRCL calculation 27 ml/min; Estimated Glomerular Filt Rate 16; Glucose 140 mg/dL (65-110); Magnesium 1.8 mg/dL (1.6-2.3); Potassium 3.6 mmol/L (3.4-5.0); Sodium 132 mmol/L (137-145)
[2023-03-28 20:55] LABS: D Dimer > 20.00 ug/mL (<0.48); INR 5.4
[2023-03-28 21:06] LABS: Alanine Aminotransferase > 3750 U/L (6-50); Band Neutrophils Percent 7 % (0-6); Lymphocytes Absolute Manual 1.94 K/mm3 (1.1-4.5); Monocytes Absolute Manual 0.38 K/mm3 (0.1-0.90); Monocytes Percent Manual 2 % (3-9); Neutrophils Absolute Manual 17.07 K/mm3 (1.3-6.7); Neutrophils Percent Manual 81 % (46-73); Nucleated Red Blood Cells 3 %; Platelet Estimate Decreased (Adequate); Total Cells Counted 100
[2023-03-28 21:07] LABS: Schistocytes None Seen (NORMAL)
[2023-03-28 21:21] LABS: Aspartate Amino Transferase 4095 U/L (17-59)
[2023-03-29] VITALS (71 sets, daily range): BP systolic 82–140; BP diastolic 52–85; PULSE 87–108; RESP 19–27; TEMP 36.5–37.2; O2SAT 94–100
[2023-03-29 00:10] LABS: Glucose Point of Care 205 mg/dl (65-105)
[2023-03-29] MEDS: EPINEPHrine INJ 4 MG in DEXTROSE 5% IN WATER 250 ML 12 MG IV CONT (01:06)
[2023-03-29] MEDS: metroNIDAZOLE 500 MG/ISO 100ML 500 MG/100 ML BAG 100 MG IVPB ×3 (01:32→14:49)
[2023-03-29] MEDS: NOREPINEPHRINE BITARTRATE 16 MG in DEXTROSE 5% IN WATER 250 ML 39.9 MG IV CONT (02:03)
[2023-03-29] MEDS: IPRATROPIUM BR 0.02% INH SOLN 0.5 MG/2.5 ML VIAL INHALATION ×3 (02:34→13:54)
[2023-03-29] MEDS: LEVALBUTEROL NEB 1.25 MG/3 ML 0.63 MG INHALATION ×3 (02:34→13:54)
[2023-03-29] MEDS: CEFEPIME 2 GM/NS 50 ML 2 GM/50 ML BAG IVPB (02:44)
[2023-03-29 03:56] LABS: Alveolar/Arterial O2 Gradient 158.9 mmHg; Base Excess ABG -7.7 mEq/l (+/-2.0); Carboxyhemoglobin 0.1 % THb (0-2.0); Device VENTILATOR; Fractional Inspired Oxygen 40 %; HCO3 ABG 16.8 mEq/l (22.0-26.0); Methemoglobin ABG 0.4 %THb (0-1.5); Oxygen Content ABG 15.5 %vol (16.0-22.0); Oxygen Saturation ABG 96.7 % (95.0-100.0); Oxyhemoglobin 95.1 % THb (90.0-100.0); PCO2 ABG 31.2 mmHg (35.0-45.0); PO2 ABG 90.4 mmHg (80.0-100.0); PO2 FiO2 Ratio Arterial Blood 2.26 %; Reduced Hemoglobin 4.4 %THb (0-5.0); Site Drawn ARTLINE; Total Hemoglobin 11.5 g/dL (12.0-18.0)
[2023-03-29 03:57] LABS: Arterial Blood Gas PEEP 5 cmH2O; Arterial Blood Gas Vent Mode CMV; Arterial Blood Gas Ventilator rate 22 /MIN
[2023-03-29 03:58] LABS: Arterial Blood Gas Tidal Volume 420 ml
[2023-03-29 04:03] LABS: Hematocrit 30.8 % (42.0-52.0); Hemoglobin 10.4 g/dL (14.0-18.0); Immature Platelet Fraction Pct 9.7 % (0.9-11.2); Mean Corpuscular HGB Conc 33.8 g/dl (32-36); Mean Corpuscular Hemoglobin 30.8 pg (26-34); Mean Corpuscular Volume 91.1 fl (80-100); Mean Platelet Volume 10.6 fl (7.4-10.4); Platelet Count Result 36 k/mm3 (150-375); Red Blood Count 3.38 M/mm3 (4.6-6.20); Red Cell Distribution Width 13.3 % (11.5-14.5); White Blood Count 22.1 K/mm3 (4.5-10.0)
[2023-03-29 04:15] LABS: Prothrombin Time 78.9 Seconds (11.1-14.7)
[2023-03-29 04:16] LABS: Partial Thromboplastin Time 69.9 SECONDS (22.3-36.8)
[2023-03-29 04:17] LABS: Lactic Acid Reflex 8.9 mmol/L (0.7-2.0)
[2023-03-29 04:31] LABS: Band Neutrophils Percent 16 % (0-6); Lymphocytes Absolute Manual 1.76 K/mm3 (1.1-4.5); Metamyelocytes Percent 2 %; Monocytes Absolute Manual 0.44 K/mm3 (0.1-0.90); Monocytes Percent Manual 2 % (3-9); Neutrophils Absolute Manual 19.44 K/mm3 (1.3-6.7); Neutrophils Percent Manual 72 % (46-73); Nucleated Red Blood Cells 1 %; Platelet Estimate Decreased (Adequate); Total Cells Counted 100
[2023-03-29 04:32] LABS: Anisocytosis 1+ (NORMAL); Schistocytes None Seen (NORMAL)
[2023-03-29 04:43] LABS: Albumin Level 3.6 g/dL (3.5-5.1); Alkaline Phosphatase 88 U/L (38-126); Anion Gap 22 mmol/L (8-16); Blood Urea Nitrogen 39 mg/dL (9-20); Calcium 7.2 mg/dL (8.4-10.2); Carbon Dioxide 18 mmol/L (22-30); Chloride 88 mmol/L (98-107); Estimated CRCL calculation 24 ml/min; Estimated Glomerular Filt Rate 15; Glucose 204 mg/dL (65-110); Magnesium 1.8 mg/dL (1.6-2.3); Potassium 3.8 mmol/L (3.4-5.0); Sodium 128 mmol/L (137-145)
[2023-03-29 05:08] LABS: D Dimer > 20.00 ug/mL (<0.48); Fibrinogen < 60 mg/dl (215-510)
[2023-03-29 05:09] LABS: INR 8.5
[2023-03-29 05:19] LABS: Aspartate Amino Transferase 5444 U/L (17-59)
[2023-03-29 05:20] LABS: Alanine Aminotransferase > 3750 U/L (6-50)
[2023-03-29] MEDS: ALBUMIN HUMAN 25% 25 GM/100 ML 100 ML IVPB (05:45)
[2023-03-29] MEDS: CENTRAL LINE FLUSH 10 ML IV PUSH ×2 (05:47→14:53)
[2023-03-29] MEDS: HYDROCORTISONE SODIUM SUCCINATE 100 MG/2 ML VIAL IV PUSH ×2 (05:47→14:51)
[2023-03-29] MEDS: SODIUM CHLORIDE 0.9% IV 250 ML 30 ML IV CONT (05:48)
[2023-03-29 06:59] LABS: Reflex Lactic Acid Yes or No Add Lactic
[2023-03-29] MEDS: DORNASE ALFA INH SOLN 1 MG/ML 2.5 ML AMP 2.5 MG INHALATION (08:03)
[2023-03-29 08:07] LABS: Lactic Acid 8.3 mmol/L (0.7-2.0)
[2023-03-29] MEDS: MINERAL OIL/WHITE PETROLATUM OINTMENT 1 APPLIC EACH EYE (09:13)
[2023-03-29] MEDS: PANTOPRAZOLE SODIUM IV 40 MG VIAL IV PUSH (09:32)
[2023-03-29] MEDS: CLINDAMYCIN 900 MG/D5W 50 ML 900 MG/50 ML PIGGYBACK 50 MG IVPB (10:25)
--- NOTE | 2023-03-29 10:50 | WPDINTPN ---
Progress Note: A&P Assessment and Plan (1) Septic shock: Code(s): A41.9 - Sepsis, unspecified organism; R65.21 - Severe sepsis with septic shock Status: Acute Assessment and Plan: Patient presented with fevers, diaphoresis, tachycardia, was start to be in a neural storm/paroxysmal sympathetic hyperactivity -patient was given adenoma seen, metoprolol, Versed -while in the ER patient dropped his blood pressures requiring a central line and Levophed and phenylephrine -patient was given adequate amount of IV fluid, bicarb pushes -currently on Levophed, vasopressin, phenylephrine infusion, wean to maintain MAP > 65-70 mmHg for adequate end organ perfusion -OFF epinephrine -patient in acute kidney injury and shock liver -currently in DIC -03/27: blood cultures Gram-positive cocci 1 of 2 bottles -03/27: urine cultures no growth -03/28: Sputum cultures pending -03/28: Check MRSA screen -continue cefepime, Flagyl and vancomycin (03/27) -added clindamycin (03/29) -continue stress dose steroids stress dose steroids (2) Acute respiratory failure: Code(s): J96.00 - Acute respiratory failure, unspecified whether with hypoxia or hypercapnia Status: Acute Assessment and Plan: Acute respiratory failure likely related to septic shock, airway protection and pneumonia/pneumonitis secondary to aspiration -03/27: Intubated in the ER -currently on CMV mode of ventilation, peep of 5 and 40% FiO2 with adequate O2 sats -chest x-ray this morning: Mild pulmonary edema with possible minimal layering pleural effusions -continue bronchodilators -thick ETT secretions, on Pulmozyme -patient has been placed on Versed infusion as he was getting tachypneic, but low tidal volumes and tachycardic (3) Aspiration pneumonia: Qualifiers: Aspiration pneumonia type: due to regurgitated food Laterality: bilateral Lung location: unspecified part of lung Qualified Code(s): J69.0 - Pneumonitis due to inhalation of food and vomit Code(s): J69.0 - Pneumonitis due to inhalation of food and vomit Status: Acute Assessment and Plan: Continue antibiotics as above currently on mechanical ventilation (4) DIC (disseminated intravascular coagulation): Code(s): D65 - Disseminated intravascular coagulation [defibrination syndrome] Status: Acute Assessment and Plan: Patient managed to DIC most likely related to septic shock, treat underlying cause -elevated INR, D-dimer, PTT, -Thrombocytopenia -03/28: patient received 2 units of FFP is, 2 units of cryoprecipitate and 2 units of platelets -03/29: Patient received 1 unit of FFP, 1 unit of cryoprecipitate and 1 unit of platelet Continue to monitor CBC and DIC panel (5) Acute kidney injury: Code(s): N17.9 - Acute kidney failure, unspecified Status: Acute Assessment and Plan: Patient presented with acute kidney injury with a creatinine of 2.40 on admission -has received adequate IV fluids -was all bicarb infusion which is currently off since 03/28 -CT scan of the abdomen and pelvis did not show any hydronephrosis, stone or masses -nephrology is following -patient on 3 pressors, will maintain MAP of 65 mmHg at all times for adequate renal perfusion -monitor urine output, electrolytes and renal function (6) Elevated LFTs: Code(s): R79.89 - Other specified abnormal findings of blood chemistry Status: Acute Assessment and Plan: Most likely related to shock liver -will continue to monitor -CT abdomen and pelvis showed normal liver, normal gallbladder with no bile duct dilatation (7) Ileus: Code(s): K56.7 - Ileus, unspecified Status: Acute Assessment and Plan: Ileus versus small-bowel obstruction on CT scan of the abdomen and pelvis -OG/NG tube to suction -surgery following the patient, recommended continuing supportive medical management -this is most likely related to septic shock, hypoperfusion
--- NOTE | 2023-03-29 11:08 | PCFNICU ---
ICU Rounding Note: Pt current nutrition is NPO. Last recorded weight is 107.4 kg, up 10 kg since admit. Bowel Motility: FMS noted. Labs Reviewed:Glu 204, Cr 4.7,GFR 15, BUN 39, GFR 15, Hct 30.8,Hgb 10.4 Meds Noted: Vasopressin, Versed, Levophed, Flagyl, Protonix. Skin: Deep Tissue-Saccum. Additional Notes: Patient remains on mechanical vent. Pressors at high rate, no tube feedings at this time. Surgery consulted for possible ileus. Plans for transfer once bed is available. Following daily in ICU rounds. Will reassess every Sunday and Sunday.
[2023-03-29] MEDS: VASOPRESSIN INJ 100 UNITS in DEXTROSE 5% 95 ML IV CONT (11:16)
[2023-03-29] MEDS: NOREPINEPHRINE BITARTRATE 16 MG in DEXTROSE 5% IN WATER 250 ML 29.93 MG IV CONT (11:17)
[2023-03-29 12:10] LABS: Hematocrit 29.4 % (42.0-52.0); Hemoglobin 9.8 g/dL (14.0-18.0); Immature Platelet Fraction Pct 11.5 % (0.9-11.2); Mean Corpuscular HGB Conc 33.3 g/dl (32-36); Mean Corpuscular Hemoglobin 30.7 pg (26-34); Mean Corpuscular Volume 92.2 fl (80-100); Mean Platelet Volume 11.1 fl (7.4-10.4); Platelet Count Result 31 k/mm3 (150-375); Red Blood Count 3.19 M/mm3 (4.6-6.20); White Blood Count 21.5 K/mm3 (4.5-10.0)
[2023-03-29 12:22] LABS: Lactic Acid Reflex 8.4 mmol/L (0.7-2.0)
[2023-03-29 12:24] LABS: Partial Thromboplastin Time 52.6 SECONDS (22.3-36.8)
[2023-03-29 12:27] LABS: Albumin Level 3.7 g/dL (3.5-5.1); Alkaline Phosphatase 91 U/L (38-126); Anion Gap 24 mmol/L (8-16); Bilirubin,Total 4.8 mg/dL (0.2-1.3); Blood Urea Nitrogen 42 mg/dL (9-20); Calcium 7.1 mg/dL (8.4-10.2); Carbon Dioxide 18 mmol/L (22-30); Chloride 88 mmol/L (98-107); Estimated CRCL calculation 22 ml/min; Estimated Glomerular Filt Rate 12; Glucose 127 mg/dL (65-110); Magnesium 1.9 mg/dL (1.6-2.3); Potassium 4.1 mmol/L (3.4-5.0); Sodium 130 mmol/L (137-145)
[2023-03-29 12:28] LABS: INR 5.9
[2023-03-29 12:31] LABS: Fibrinogen 111 mg/dl (215-510)
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
[2023-03-29 12:42] LABS: D Dimer > 20.00 ug/mL (<0.48)
[2023-03-29 12:49] LABS: Band Neutrophils Percent 42 % (0-6); Lymphocytes Absolute Manual 0.86 K/mm3 (1.1-4.5); Neutrophils Absolute Manual 20.64 K/mm3 (1.3-6.7); Neutrophils Percent Manual 54 % (46-73); Platelet Estimate Decreased (Adequate); Total Cells Counted 100
[2023-03-29 12:50] LABS: Schistocytes None Seen (NORMAL)
[2023-03-29] MEDS: MIDAZOLAM 100MG/NS 100ML(*CRX) 100 MG/100 ML BAG IV CONT (13:51)
[2023-03-29] MEDS: CEFEPIME 1 GM/NS 50 ML 1 GM/50 ML BAG IVPB (14:53)
[2023-03-29 15:33] LABS: Aspartate Amino Transferase 5137 U/L (17-59)
[2023-03-29 21:31] LABS: Alanine Aminotransferase > 3750 U/L (6-50)
--- NOTE | 2023-04-25 07:55 | PM.TDS ---
Transfer Discharge Sum: Prov Provider Date of admission: 03/28/23 03:40 Primary care physician: PHYSICIAN NOT ON STAFF Admitting clinician: Nahed Causey DO Consults: 03/28/23 00:19 Consult to Physician Routine Comment: Consulting Provider: Kathi Castillo Reason for consultation: sepsis, AMS, neurostorm Has provider been notified: Yes 03/28/23 09:38 Consult to Physician Routine Comment: spoke with Dr. [phone](ER,US) Consulting Provider: Shelby Esparza scallop dredger/MD group to consult: Nephrology Reason for consultation: Acute kidney injury, septic shock, respiratory failure Has provider been notified: Yes 03/28/23 09:59 Consult to Physician Routine Comment: spoke with Obdulia @[id number](ER,US) Consulting Provider: Manoj Kaye scallop dredger/MD group to consult: Surgery Reason for consultation: Ileus with concerns of small-bowel obstruction Has provider been notified: Yes DS: Admitting Diagnosis Discharge Date 03/29/23 Admitting Diagnosis sepsis , resp failure DS: Discharge Diagnosis Discharge Diagnosis (1) Septic shock: Code(s): A41.9 - Sepsis, unspecified organism; R65.21 - Severe sepsis with septic shock Status: Acute Assessment and Plan: Patient presented with fevers, diaphoresis, tachycardia, was start to be in a neural storm/paroxysmal sympathetic hyperactivity -patient was given adenoma seen, metoprolol, Versed -while in the ER patient dropped his blood pressures requiring a central line and Levophed and phenylephrine -patient was given adequate amount of IV fluid, bicarb pushes -currently on Levophed, vasopressin, phenylephrine infusion, wean to maintain MAP > 65-70 mmHg for adequate end organ perfusion -OFF epinephrine -patient in acute kidney injury and shock liver -currently in DIC -03/27: blood cultures Gram-positive cocci 1 of 2 bottles -03/27: urine cultures no growth -03/28: Sputum cultures pending -03/28: Check MRSA screen -continue cefepime, Flagyl and vancomycin (03/27) -added clindamycin (03/29) -continue stress dose steroids stress dose steroids (2) Acute respiratory failure: Code(s): J96.00 - Acute respiratory failure, unspecified whether with hypoxia or hypercapnia Status: Acute Assessment and Plan: Acute respiratory failure likely related to septic shock, airway protection and pneumonia/pneumonitis secondary to aspiration -03/27: Intubated in the ER -currently on CMV mode of ventilation, peep of 5 and 40% FiO2 with adequate O2 sats -chest x-ray this morning: Mild pulmonary edema with possible minimal layering pleural effusions -continue bronchodilators -thick ETT secretions, on Pulmozyme -patient has been placed on Versed infusion as he was getting tachypneic, but low tidal volumes and tachycardic (3) Aspiration pneumonia: Qualifiers: Aspiration pneumonia type: due to regurgitated food Laterality: bilateral Lung location: unspecified part of lung Qualified Code(s): J69.0 - Pneumonitis due to inhalation of food and vomit Code(s): J69.0 - Pneumonitis due to inhalation of food and vomit Status: Acute Assessment and Plan: Continue antibiotics as above currently on mechanical ventilation (4) DIC (disseminated intravascular coagulation): Code(s): D65 - Disseminated intravascular coagulation [defibrination syndrome] Status: Acute Assessment and Plan: Patient managed to DIC most likely related to septic shock, treat underlying cause -elevated INR, D-dimer, PTT, -Thrombocytopenia -03/28: patient received 2 units of FFP is, 2 units of cryoprecipitate and 2 units of platelets -03/29: Patient received 1 unit of FFP, 1 unit of cryoprecipitate and 1 unit of platelet Continue to monitor CBC and DIC panel (5) Acute kidney injury: Code(s): N17.9 - Acute kidney failure, unspecified Status: Acute Assessment and Plan: Patient presented with acute kidney
== END 2023-03-29 16:35 | disposition short-term general hospital (02) | DRG 871 ==
LOC: ANHED 03-28 00:21 → ANHICU 03-28 01:09
PROVIDERS: Internal Medicine; Admitting Provider Internal Medicine; Emergency Provider Emergency Medicine; Visit Provider Chiropractor
DX: A41.9 Sepsis, unspecified organism (principal); D65 Disseminated intravascular coagulation [defibrination syndrome]; J69.0 Pneumonitis due to inhalation of food and vomit; R65.21 Severe sepsis with septic shock; K72.00 Acute and subacute hepatic failure without coma; J96.00 Acute respiratory failure, unspecified whether with hypoxia or hypercapnia; N17.9 Acute kidney failure, unspecified; K56.0 Paralytic ileus; E87.0 Hyperosmolality and hypernatremia; E87.21 Acute metabolic acidosis; R00.0 Tachycardia, unspecified; G47.33 Obstructive sleep apnea (adult) (pediatric); Z20.822 Contact with and (suspected) exposure to COVID-19; Z93.1 Gastrostomy status; Z87.820 Personal history of traumatic brain injury; Z74.01 Bed confinement status
CPT/HCPCS: 31500; 36415; 36430; 36600; 70450; 71045; 71250; 74176; 80048; 80053; 81001; 82375; 82550; 82803; 82805; 82948; 83050; 83605; 83735; 84145; 84478; 85025; 85049; 85055; 85380; 85384; 85610; 85652; 85730; 86140; 86900; 86901; 87040; 87070; 87077; 87081; 87086; 87147; 87181; 87186; 87205; 87493; 87637; 93005; 94003; 94640; 96361; 96365; 96366; 96367; 96368; 96375; 96376; 99285; A9270; C1751; C9113; G0378; J0153; J0171; J0330; J0692; J1720; J1836; J1953; J2060; J2250; J2371; J2543; J2704; J3010; J3370; J3430; J3475; J3480; J7030; J7040; J7050; J7060; J7070; J7120; P9012; P9017; P9034; P9047